=== PATIENT | male | born 1985 | race Caucasian/White ===

== ENCOUNTER 2017-07-11 10:35 | Inpatient (IN) | payer OTHER ==
[~2017-07-11] VITALS: Ht 175.3 cm; Wt 67.6 kg
[2017-07-11 12:06] LABS: BASO % 0.4 % (0.0-1.0); EOS # 0.2 10*3/uL (0.0-0.4); HEMATOCRIT 33.3 % (42.0-52.0); LYMPH # 1.7 10*3/uL (1.3-4.4); LYMPH % 31.7 % (27.0-41.0); MEAN CELL VOLUME 79.9 fl (80.0-94.0); MEAN CORPUSCULAR HGB 26.4 pg (27.0-31.0); MEAN PLATELET VOLUME 9.5 fl (9.6-12.3); MONO # 0.4 10*3/uL (0.1-1.0); MONO % 7.1 % (3.0-9.0); NEUT # 3.1 10*3/uL (2.3-7.9); NEUT % 57.4 % (47.0-73.0); PLATELET COUNT AUTOMATED 232 10*3/uL (130-400); RED BLOOD COUNT 4.17 10*6/uL (4.50-5.90); RED CELL DISTRI WIDTH 15.1 % (0-14.5); WHITE BLOOD COUNT 5.4 10*3/uL (4.8-10.8)
[2017-07-11 12:21] LABS: ALBUMIN 3.9 gm/dl (3.1-4.5); ALKALINE PHOSPHATASE 83 U/L (45-117); BUN 16 mg/dl (7-24); CHLORIDE 99 mmol/L (98-107); CREATININE 1.03 mg/dL (0.70-1.30); POTASSIUM 4.5 mmol/L (3.5-5.1); SGOT/AST 27 IU/L (3-35); SGPT/ALT 26 U/L (12-78); SODIUM 137 mmol/L (136-145); TOTAL PROTEIN 7.4 gm/dL (6.4-8.2)
[2017-07-11 12:27] LABS: ETHYL ALCOHOL < 3.0 mg/dl (<3)
[2017-07-11] MEDS ORDERED: LYRICA100 M1 PO (12:50)
[2017-07-11] MEDS ORDERED: PRINIVIL10 MG PO (12:50)
[2017-07-11] MEDS ORDERED: METFORMIN1000 MG PO (12:50)
[2017-07-11] MEDS ORDERED: LIPITOR10 MG PO (12:50)
[2017-07-11] MEDS ORDERED: BASAG SOL SC (12:51)
[2017-07-11] MEDS ORDERED: METFORMIN500 MG PO (12:51)
[2017-07-11] MEDS ORDERED: NOVOLIN 70100 UNIT/1 SC (12:53)
[2017-07-11] MEDS ORDERED: NOVOLOG MIX 70/33 ML SC (12:54)
[2017-07-11] MEDS ORDERED: NOVOLOG100 UNIT/1 SQ (12:55)
[2017-07-11 12:59] VITALS: BP 120/79
[2017-07-11 16:00] VITALS: BP 116/67
[2017-07-11 20:00] VITALS: BP 105/60
[2017-07-12] VITALS: BP 103/59
[2017-07-12 04:00] VITALS: BP 110/65
[2017-07-12 08:00] VITALS: BP 99/52
[2017-07-12 12:00] VITALS: BP 102/68
[2017-07-12 16:00] VITALS: BP 85/46
[2017-07-12 17:12] LABS: BILIRUBIN NEGATIVE (NEGATIVE); BLOOD NEGATIVE (NEGATIVE); CLARITY CLEAR (CLEAR); COLOR YELLOW (YELLOW); GLUCOSE NEGATIVE (NEGATIVE); KETONE NEGATIVE (NEGATIVE); LEUKO ESTERASE NEGATIVE (NEGATIVE); NITRITE NEGATIVE (NEGATIVE); PH 5.5 (5.0-9.0)
[2017-07-12 17:16] LABS: BACTERIA TRACE; MUCOUS TRACE
[2017-07-12 17:21] LABS: URINE AMPHETAMINES > 1000 (1000ng/ml); URINE BARBITURATES < 200 (200ng/ml); URINE BENZODIAZEPINES < 200 (200ng/ml); URINE CANNABINOIDS (THC) < 50 (50ng/ml); URINE COCAINE < 300 (300ng/ml); URINE METHADONE < 300 (300ng/ml); URINE OPIATES > 300 (300ng/ml)
[2017-07-12 17:24] LABS: URINE PHENCYCLIDINE < 25 (25ng/ml)
[2017-07-12 20:00] VITALS: BP 111/67
[2017-07-13] VITALS: BP 108/60
[2017-07-13 08:00] VITALS: BP 105/61
[2017-07-13 12:00] VITALS: BP 97/63
[2017-07-13 16:04] VITALS: BP 138/105
[2017-07-13 20:00] VITALS: BP 92/50
[2017-07-14] VITALS: BP 102/62
[2017-07-14 08:00] VITALS: BP 100/61
[2017-07-14] MEDS ORDERED: ATARAX,VISTARIL50 MG PO (08:37)
[2017-07-14] MEDS ORDERED: ZOFRAN 4 MG ED2 TAB PO (08:37)
[2017-07-14] MEDS ORDERED: METHOCARBAMOL750 M1 PO (08:37)
[2017-07-14 12:00] VITALS: BP 102/68
== END 2017-07-14 15:25 | disposition home or self-care (01) | DRG 897 ==
LOC: 4E 10:35
PROVIDERS: Student in an Organized Health Care Education/Training Program
DX: F11.20 Opioid dependence, uncomplicated (principal); E11.65 Type 2 diabetes mellitus with hyperglycemia; G62.9 Polyneuropathy, unspecified; D50.9 Iron deficiency anemia, unspecified; B19.20 Unspecified viral hepatitis C without hepatic coma; F15.10 Other stimulant abuse, uncomplicated; J34.89 Other specified disorders of nose and nasal sinuses; E78.5 Hyperlipidemia, unspecified; F41.9 Anxiety disorder, unspecified; I10 Essential (primary) hypertension; Z71.6 Tobacco abuse counseling; Z88.1 Allergy status to other antibiotic agents; Z79.4 Long term (current) use of insulin; Z79.84 Long term (current) use of oral hypoglycemic drugs

== ENCOUNTER 2018-12-21 21:07 | Inpatient (IN) | payer OTHER ==
[~2018-12-21] VITALS: Ht 175.2 cm; Wt 64.6 kg
--- NOTE | ~2018-12-21 | EKG ---
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
[~2018-12-21 21:07] MED LIST: ATARAX,VISTARIL50 MG PO; BASAG SOL SC; LIPITOR10 MG PO; LYRICA100 M1 PO; METFORMIN1000 MG PO; METFORMIN500 MG PO; METHOCARBAMOL750 M1 PO; NOVOLIN 70100 UNIT/1 SC; NOVOLOG MIX 70/33 ML SC; NOVOLOG100 UNIT/1 SQ; PRINIVIL10 MG PO; ZOFRAN 4 MG ED2 TAB PO
[2018-12-21 21:18] VITALS: BP 131/76
[2018-12-21 23:02] LABS: BASO % 0.3 % (0.0-1.0); EOS # 0.1 10*3/uL (0.0-0.4); EOS % 0.9 % (1.0-4.0); HEMATOCRIT 34.9 % (42.0-52.0); HEMOGLOBIN 11.4 g/dl (14.0-18.0); LYMPH # 1.1 10*3/uL (1.3-4.4); LYMPH % 12.3 % (27.0-41.0); MEAN CELL VOLUME 78.1 fl (80.0-94.0); MEAN CORPUSCULAR HGB 25.5 pg (27.0-31.0); MEAN CORPUSCULAR HGB CONC 32.7 g/dl (33.0-37.0); MEAN PLATELET VOLUME 8.8 fl (9.6-12.3); MONO # 0.5 10*3/uL (0.1-1.0); MONO % 5.4 % (3.0-9.0); NEUT # 7.3 10*3/uL (2.3-7.9); NEUT % 80.8 % (47.0-73.0); PLATELET COUNT AUTOMATED 474 10*3/uL (130-400); RED BLOOD COUNT 4.47 10*6/uL (4.50-5.90); RED CELL DISTRI WIDTH 13.3 % (0-14.5)
[2018-12-21 23:17] LABS: ALBUMIN 3.6 gm/dl (3.1-4.5); ALKALINE PHOSPHATASE 96 U/L (45-117); BUN 18 mg/dl (7-24); CHLORIDE 106 mmol/L (98-107); CREATININE 1.09 mg/dL (0.70-1.30); SGOT/AST 25 IU/L (3-35); SGPT/ALT 20 U/L (12-78); SODIUM 139 mmol/L (136-145); TOTAL PROTEIN 8.6 gm/dL (6.4-8.2)
[2018-12-21 23:44] VITALS: BP 122/81
[2018-12-22 00:26] LABS: BILIRUBIN NEGATIVE (NEGATIVE); BLOOD TRACE-INTACT (NEGATIVE); CLARITY SL CLOUDY (CLEAR); COLOR YELLOW (YELLOW); GLUCOSE 1+ (NEGATIVE); KETONE NEGATIVE (NEGATIVE); LEUKO ESTERASE NEGATIVE (NEGATIVE); NITRITE NEGATIVE (NEGATIVE); SPECIFIC GRAVITY 1.025 (1.005-1.030); UROBILINOGEN 0.2 E.U./dl (0.2-1.0)
[2018-12-22 00:34] LABS: URINE AMPHETAMINES > 1000 (1000ng/ml); URINE BARBITURATES < 200 (200ng/ml); URINE BENZODIAZEPINES < 200 (200ng/ml); URINE CANNABINOIDS (THC) < 50 (50ng/ml); URINE COCAINE < 300 (300ng/ml); URINE METHADONE < 300 (300ng/ml); URINE OPIATES < 300 (300ng/ml); URINE PHENCYCLIDINE < 25 (25ng/ml)
[2018-12-22 01:30] VITALS: BP 127/75
[2018-12-22 08:00] VITALS: BP 121/66
[2018-12-22 09:23] LABS: BUN 18 mg/dl (7-24); CHLORIDE 107 mmol/L (98-107); CHOLESTEROL 163 mg/dL (<200); CREATININE 1.14 mg/dL (0.70-1.30); POTASSIUM 3.9 mmol/L (3.5-5.1); SODIUM 138 mmol/L (136-145)
[2018-12-22 09:27] LABS: HDL CHOLESTEROL 41 mg/dl (40-60); LDL CHOLESTEROL 100 mg/dL (9-159); TRIGLYCERIDES 109 mg/dl (<150); VLDL CHOLESTEROL 22 mg/dL (6-40)
== END 2018-12-22 11:50 | disposition left against medical advice (07) | DRG 420 ==
LOC: ED 21:07 → 5E 12-22 00:41 → EDHOLD 12-22 00:41 → 5E 12-22 01:13
PROVIDERS: Internal Medicine; Student in an Organized Health Care Education/Training Program; ADMIT Internal Medicine
DX: E11.649 Type 2 diabetes mellitus with hypoglycemia without coma (principal); E44.1 Mild protein-calorie malnutrition; E11.40 Type 2 diabetes mellitus with diabetic neuropathy, unspecified; F41.9 Anxiety disorder, unspecified; E78.5 Hyperlipidemia, unspecified; I10 Essential (primary) hypertension; Z53.29 Procedure and treatment not carried out because of patient's decision for other reasons; F17.210 Nicotine dependence, cigarettes, uncomplicated; D47.3 Essential (hemorrhagic) thrombocythemia; D50.9 Iron deficiency anemia, unspecified; B19.20 Unspecified viral hepatitis C without hepatic coma; F15.10 Other stimulant abuse, uncomplicated; F19.90 Other psychoactive substance use, unspecified, uncomplicated; Z79.4 Long term (current) use of insulin; Z88.1 Allergy status to other antibiotic agents; Z71.6 Tobacco abuse counseling; Z79.84 Long term (current) use of oral hypoglycemic drugs; Z68.21 Body mass index [BMI] 21.0-21.9, adult